=== PATIENT | male | born 1965 | race Caucasian/White ===

== ENCOUNTER 2024-06-10 08:57 | Outpatient (REF) | payer BC, SELFPAY ==
--- NOTE | 2024-06-10 07:35 | SKI_PTH ---
PATIENT: Javid Kulkarni LOC: [facility] U#:[id number] AGE/SX: 58/M ROOM: RE06/10/[address]: Liang Cronin MD : 1965 BED: DIS: 06/10/2024 SPEC #: [id number] RECD: 06/10/24 12:42 STATUS: KINZA REQ #: [id number] SHELLEY: 06/10/24 07:[address]: Liang Cronin DEPT: Surgical Specimen RECD BY: Bhavana Mart ENTERED: 06/10/24 12:43 SP TYPE: SKI OTHR DR: Joseph Bernardo Tissues: 1 - SKIN BIOPSY(SHAVE/PUNCH) Procedures: SKIN LEVEL 4 Comments: [id number]
== END 2024-06-10 08:58 | disposition home or self-care (01) ==
LOC: LBN 08:57
PROVIDERS: PCP Nurse Practitioner Family; Referring Provider Nurse Practitioner Family; Visit Provider Otolaryngology
DX: L98.9 Disorder of the skin and subcutaneous tissue, unspecified (principal); D22.39 Melanocytic nevi of other parts of face
CPT/HCPCS: 88305